=== PATIENT | female | born 1960 | race African-American/Black ===

== ENCOUNTER 2018-06-10 11:45 | Inpatient (IN) | payer MEDICAID ==
[~2018-06-10] VITALS: Ht 165.1 cm; Wt 72.6 kg
[2018-06-10 12:12] VITALS: BP 136/82
--- NOTE | 2018-06-10 12:24 | Emergency Room Report ---
History of Present Illness General Chief Complaint: General Complaint Source: Patient Present Illness HPI Patient sense with reports that she has not been able to sleep over the past 5 days Reports that she was recently checked for her glucose and was elevated however she has not had any further intervention or follow-up She also feels palpitations and heaviness in the midsternal area Denies any vomiting or diarrhea denies any headache as any focal weakness denies any new medications Allergies: Coded Allergies: No Known Allergies (Unverified , 06/10/18) Patient History Past Medical History: see triage record Pertinent Family History: none Last Menstrual Period: menopause Reviewed Nursing Documentation: PMH: Agreed; PSxH: Agreed Nursing Documentation-PMH Past Medical History: No Stated History Review of Systems All Other Systems: negative except mentioned in HPI Physical Exam Vital Signs Date Time Temp Pulse Resp B/P (MAP) Pulse Ox O2 Delivery O2 Flow Rate FiO2 06/10/18 11:54 98.1 75 18 153/101 96 Room Air Sp02 EP Interpretation: reviewed, normal General Appearance: well appearing, no apparent distress Head: normocephalic, atraumatic Eyes: bilateral eye PERRL, bilateral eye EOMI ENT: hearing grossly normal, normal pharynx, TMs + canals normal, uvula midline Neck: full range of motion, supple, no meningismus, no bony tend Respiratory: lungs clear, normal breath sounds, no rhonchi, no respiratory distress, no retraction, no accessory muscle use Cardiovascular #1: normal peripheral pulses, regular rate, rhythm, no edema, no gallop, no JVD, no murmur Gastrointestinal: normal bowel sounds, non tender, soft, no mass, no organomegaly, non-distended, no guarding, no hernia, no pulsatile mass, no rebound Genitourinary: no CVA tenderness Musculoskeletal: normal inspection Neurologic: oriented x3, responsive, 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, motor strength/ tone normal, sensory intact Psychiatric: mood/affect normal Skin: normal color, no rash, warm/dry, palpation normal Lymphatic: normal inspection, no adenopathy Medical Decision Making Diagnostic Impression: Primary Impression: Dehydration Additional Impressions: Polysubstance abuse UTI (urinary tract infection) ER Course Patient is a fairly complex patient with multiple differential to consideration including but not limited to cardiac cardiopulmonary and vascular emergencies Patient's workup reveals elevated white blood cell count Hemoglobin is high indicative of the patient's clinical dehydration Urine sample also shows positive nitrites Patient also has multi-substance positive Patient receiving further hydration And requires further inpatient care Labs Test 06/10/18 12:52 06/10/18 13:55 06/10/18 14:30 06/11/18 05:00 White Blood Count 16.4 K/UL (4.8-10.8) 14.0 K/UL (4.8-10.8) Red Blood Count 8.20 M/UL (4.20-5.40) 7.41 M/UL (4.20-5.40) Hemoglobin 20.8 G/DL (12.0-16.0) 18.7 G/DL (12.0-16.0) Hematocrit 62.4 % (37.0-47.0) 56.4 % (37.0-47.0) Mean Corpuscular Volume 77 FL (80-99) 76 FL (80-99) Mean Corpuscular Hemoglobin 25.4 PG (27.0-31.0) 25.2 PG (27.0-31.0) Mean Corpuscular Hemoglobin Concent 33.3 G/DL (32.0-36.0) 33.1 G/DL (32.0-36.0) Red Cell Distribution Width 17.9 % (11.6-14.8) 17.2 % (11.6-14.8) Platelet Count 826 K/UL (150-450) 669 K/UL (150-450) Mean Platelet Volume 6.5 FL (6.5-10.1) 5.9 FL (6.5-10.1) Neutrophils (%) (Auto) % (45.0-75.0) 69.3 % (45.0-75.0) Lymphocytes (%) (Auto) % (20.0-45.0) 21.4 % (20.0-45.0) Monocytes (%) (Auto) % (1.0-10.0) 4.7 % (1.0-10.0) Eosinophils (%) (Auto) % (0.0-3.0) 2.6 % (0.0-3.0) Basophils (%) (Auto) % (0.0-2.0) 2.0 % (0.0-2.0) Differential Total Cells Counted 100 Neutrophils % (Manual) 80 % (45-75) Lymphocytes % (Manual) 13 % (20-45) Monocytes % (Manual) 3 % (1-10) Eosinophils % (Manual) 0 % (0-3) Basophils % (Manual) 0 % (0-2) Band Neutrophils 4 % (0-8) Platelet Estimate Increased Platelet Morphology Normal Anisocytosis 1+ Sodium Level 141 MMOL/L (136-145) 143 MMOL/L (136-145) Potassium Level 4.1 MMOL/L (3.5-5.1) 3.0 MMOL/L (3.5-5.1) Chloride Level 104 MMOL/L (98-107) 105 MMOL/L (98-107) Carbon Dioxide Level 25 MMOL/L (21-32) 29 MMOL/L (21-32) Anion Gap 12 mmol/L (5-15) 9 mmol/L (5-15) Blood Urea Nitrogen 12 mg/dL (7-18) 11 mg/dL (7-18) Creatinine 0.8 MG/DL (0.55-1.30) 1.1 MG/DL (0.55-1.30) Estimat Glomerular Filtration Rate > 60 mL/min (>60) > 60 mL/min (>60) Glucose Level 97 MG/DL (74-106) 79 MG/DL (74-106) Calcium Level 9.6 MG/DL (8.5-10.1) 9.2 MG/DL (8.5-10.1) Total Bilirubin 1.1 MG/DL (0.2-1.0) 1.0 MG/DL (0.2-1.0) Direct Bilirubin 0.0 MG/DL (0.0-0.3) Aspartate Amino Transf (AST/SGOT) 17 U/L (15-37) 15 U/L (15-37) Alanine Aminotransferase (ALT/SGPT) 9 U/L (12-78) 10 U/L (12-78) Alkaline Phosphatase 96 U/L (46-116) 86 U/L (46-116) Total Creatine Kinase 65 U/L (26-308) Creatine Kinase MB < 0.5 NG/ML (0.0-3.6) Creatine Kinase MB Relative Index 0.7 Troponin I 0.035 ng/mL (0.000-0.056) Pro-B-Type Natriuretic Peptide 91 pg/mL (0-125) Total Protein 7.8 G/DL (6.4-8.2) 7.1 G/DL (6.4-8.2) Albumin 3.7 G/DL (3.4-5.0) 3.3 G/DL (3.4-5.0) Globulin 4.1 g/dL 3.8 g/dL Albumin/Globulin Ratio 0.9 (1.0-2.7) 0.9 (1.0-2.7) Lipase 55 U/L (73-393) Urine Color Yellow Urine Appearance Clear Urine pH 6 (4.5-8.0) Urine Specific [place] 1.025 (1.005-1.035) Urine Protein 2+ (NEGATIVE) Urine Glucose (UA) Negative (NEGATIVE) Urine Ketones 4+ (NEGATIVE) Urine Blood 2+ (NEGATIVE) Urine Nitrite Positive (NEGATIVE) Urine Bilirubin 2+ (NEGATIVE) Urine Ictotest Negative (NEGATIVE) Urine Urobilinogen 4 MG/DL (0.0-1.0) Urine Leukocyte Esterase 2+ (NEGATIVE) Urine RBC 5-10 /HPF (0 - 2) Urine WBC 2-4 /HPF (0 - 2) Urine Squamous Epithelial Cells Few /LPF (NONE/OCC) Urine Bacteria Few /HPF (NONE) Urine Mucus Moderate /LPF (NONE/OCC) Urine Opiates Screen Positive (NEGATIVE) Urine Barbiturates Screen Negative (NEGATIVE) Phencyclidine (PCP) Screen Negative (NEGATIVE) Urine Amphetamines Screen Negative (NEGATIVE) Urine Benzodiazepines Screen Positive (NEGATIVE) Urine Cocaine Screen Negative (NEGATIVE) Urine Marijuana (THC) Screen Positive (NEGATIVE) Test 06/12/18 07:20 Rhythm Strip Diag. Results EP Interpretation: yes Rate: 89 Rhythm: NSR, no PVC's, no ectopy Chest X-Ray Diagnostic Results Chest X-Ray Diagnostic Results : Chest X-Ray Ordered: Yes # of Views/Limited/Complete: 1 View Indication: Chest Pain EP Interpretation: Yes Interpretation: no consolidation, no effusion, no pneumothorax Impression: No acute disease Electronically Signed by: Ysabel Pompa DO Last Vital Signs Date Time Temp Pulse Resp B/P (MAP) Pulse Ox O2 Delivery O2 Flow Rate FiO2 06/10/18 12:12 75 18 Room Air 06/10/18 12:12 98.1 136/82 98 Status: improved Disposition: ADMITTED INPATIENT Condition: Serious Scripts No Active Prescriptions or Reported Meds Ysabel Pompa DO Jun 10, 2018 12:24
[2018-06-10 13:14] LABS: MEAN CORPUSCULAR VOLUME 77 FL (80-99); PLATELET COUNT 826 K/UL (150-450); RED CELL DISTRIBUTION WIDTH 17.9 % (11.6-14.8); WHITE BLOOD COUNT 16.4 K/UL (4.8-10.8)
[2018-06-10 13:32] LABS: HEMATOCRIT 62.4 % (37.0-47.0); HEMOGLOBIN 20.8 G/DL (12.0-16.0)
[2018-06-10] MEDS ORDERED: cefTRIAXone 1 GM in NS 55 ML IVPB ONE (14:00)
[2018-06-10 14:45] LABS: APPEARANCE,URINE CLEAR; BILIRUBIN, URINE 2+ (NEGATIVE); GLUCOSE, URINE (UA) NEGATIVE (NEGATIVE); KETONES,URINE 4+ (NEGATIVE); LEUKOCYTE ESTERASE ,URINE 2+ (NEGATIVE); NITRITE,URINE POSITIVE (NEGATIVE); PH,URINE 6 (4.5-8.0); PROTEIN,URINE 2+ (NEGATIVE); UROBILINOGEN,URINE 4 MG/DL (0.0-1.0)
[2018-06-10 14:46] LABS: ANION GAP 12 mmol/L (5-15); BLOOD UREA NITROGEN 12 mg/dL (7-18); CALCIUM 9.6 MG/DL (8.5-10.1); CARBON DIOXIDE 25 MMOL/L (21-32); CHLORIDE 104 MMOL/L (98-107); CREATININE 0.8 MG/DL (0.55-1.30); POTASSIUM 4.1 MMOL/L (3.5-5.1); SODIUM 141 MMOL/L (136-145)
[2018-06-10 14:54] LABS: COLOR,URINE YELLOW
[2018-06-10 15:02] LABS: ALANINE AMINOTRANSFERASE 9 U/L (12-78); ALBUMIN 3.7 G/DL (3.4-5.0); ALBUMIN/GLOBULIN RATIO 0.9 (1.0-2.7); ALKALINE PHOSPHATASE 96 U/L (46-116); ASPARTATE AMINO TRANSFERASE 17 U/L (15-37); BILIRUBIN,TOTAL 1.1 MG/DL (0.2-1.0); CKMB < 0.5 NG/ML (0.0-3.6); CREATINE KINASE 65 U/L (26-308)
[2018-06-10 15:07] VITALS: BP 138/65
[2018-06-10 16:25] VITALS: BP 142/85
--- NOTE | 2018-06-10 16:35 | Diagnostic Imaging Report ---
Indication: Chest pain Technique: One view of the chest Comparison: none Findings: Lungs and pleural spaces are clear. Heart size is normal. Metallic foreign bodies project over the right chest wall and axilla Impression: No acute process
[2018-06-10] MEDS ORDERED: Albuterol/Ipratropium 3ml neb HHN PRN (17:45)
[2018-06-10] MEDS ORDERED: Miralax 17gm pkt ORAL PRN (17:45)
[2018-06-10] MEDS ORDERED: Morphine Sulfate 2mg/ml Inj IVP PRN (17:45)
[2018-06-10] MEDS ORDERED: Nitroglycerin Subl 0.4mg tab SL PRN (17:45)
[2018-06-10 18:00] VITALS: BP 163/96
[2018-06-10 20:00] VITALS: BP 149/89
[2018-06-10] MEDS: Cefepime HCl 2 GM in D5W 110 ML IV SCH (20:05)
[2018-06-10] MEDS: Heparin 5000 units/ml inj SUBQ SCH (20:14)
[2018-06-10] MEDS ORDERED: Vancomycin 1.5 GM/D5W 250ML IVPB ONE (22:00)
--- NOTE | 2018-06-10 22:56 | History & Physical ---
History and Physical History & Physicial Last 24 Hour Vital Signs Date Time Temp Pulse Resp B/P (MAP) Pulse Ox O2 Delivery O2 Flow Rate FiO2 06/10/18 21:20 Room Air 06/10/18 20:22 73 16 Room Air 21 06/10/18 20:00 100.0 75 18 149/89 (109) 99 06/10/18 18:00 99.0 18 163/96 (118) 72 06/10/18 17:58 Room Air 06/10/18 17:08 98.0 88 15 142/85 99 Room Air 06/10/18 16:25 98.0 88 15 142/85 99 Room Air 06/10/18 15:07 98.1 86 18 138/65 100 Room Air 06/10/18 12:12 75 18 Room Air 06/10/18 12:12 98.1 74 20 136/82 98 Room Air 06/10/18 11:54 98.1 75 18 153/101 96 Room Air Blas Robledo MD Jun 10, 2018 22:56
[2018-06-11] VITALS: BP 150/99
[2018-06-11 04:00] VITALS: BP 135/94
--- NOTE | 2018-06-11 04:15 | History and Physical Report ---
DATE OF ADMISSION: 06/10/2018 CHIEF COMPLAINT: Lack of sleep, nausea, and vomiting. HISTORY OF PRESENT ILLNESS: This is a 57-year-old female with past medical history significant for psychiatric disorder nonspecified. She was used to be on Xanax, but she ran out of her medication and her primary doctor who is prescribing to her is retired. The patient presented to the emergency room complaining about lack of sleep, worsening over the past 10 days. She said that it got to the point that she was affecting her body and associated with nausea, vomiting, and chest discomfort. She had some palpitations and heaviness in the midsternum area. Denies any loss of consciousness. Shortly after initial evaluation in the emergency, the patient was admitted to the hospital with urinary tract infection as well as anxiety and panic attack. PAST MEDICAL HISTORY/PAST SURGICAL HISTORY: As above. History of specified psychiatric disorder. MEDICATION: At home, Xanax. SOCIAL HISTORY: The patient denies any substance abuse. However, she smokes marijuana. Denies any alcohol abuse. FAMILY HISTORY: Significant for hypertension. REVIEW OF SYSTEMS: Mostly as above. Denies any dysuria, frequency, or hematuria. Denies any hemoptysis or hematochezia. Denies any loss of consciousness. Denies any double vision. PHYSICAL EXAMINATION: VITAL SIGNS: On admission, temperature 98.1, pulse of 75, respiration 18, and blood pressure 153/101. GENERAL: The patient is awake, responsive, anxious. HEAD AND NECK: Pupils are reactive to light. Extraocular movements are intact. NECK: Supple. No JVD. LUNGS: Good air entry. No wheezing or rales. HEART: S1 and S2. Regular rhythm. No murmurs or gallops. ABDOMEN: Soft, nondistended, and nontender. Positive bowel sounds. EXTREMITIES: No cyanosis, clubbing, or edema. NEUROLOGIC: Cranial nerves II through XII grossly intact. Motor is 5/5 in all extremities. Gait is intact. RECTAL: Refused and deferred. GENITOURINARY: Refused and deferred. PSYCHIATRIC: Mood and affect is anxious. LABORATORY AND DIAGNOSTIC DATA: On admission from the ER. Urinalysis, +2 protein, +4 ketones, positive nitrate, +2 leukocytes, moderate mucosa, few bacteria. Urine drug screen positive for opioids, benzodiazepine, and marijuana. WBC of 16, hemoglobin of 8, hematocrit of 20, and platelet is ____. Sodium 141, potassium 4.1, chloride 104, bicarbonate 25, BUN 12, and creatinine 0.8. Total bilirubin of 1.1, troponin 0.035, albumin is 2.7. The patient's chest x-ray is unremarkable. No acute cardiopulmonary disease. Metallic foreign body was projecting over the right chest wall and axilla. ASSESSMENT: 1. Anxiety. 2. Psychiatric disorder, possible schizoaffective disorder. 3. Urinary tract infection. 4. Anemia. PLAN: Admit the patient to med/surg. We will follow up laboratory. Broad-spectrum antibiotics with cefepime. Code status is Full Code. DVT prophylaxis. Heparin subcutaneous. We will follow up with the psychiatry consultation with Dr. Daly in the morning and Pulmonary consultation with Dr. Porter. Blas Robledo M.D. DR: XAVIER JOB#: [id number] CC:
[2018-06-11 07:14] LABS: EOSINOPHILS % (AUTO) 2.6 % (0.0-3.0); HEMATOCRIT 56.4 % (37.0-47.0); LYMPHOCYTES % (AUTO) 21.4 % (20.0-45.0); MEAN CORPUSCULAR VOLUME 76 FL (80-99); MONOCYTES % (AUTO) 4.7 % (1.0-10.0); NEUTROPHILS % (AUTO) 69.3 % (45.0-75.0); PLATELET COUNT 669 K/UL (150-450); RED BLOOD COUNT 7.41 M/UL (4.20-5.40); RED CELL DISTRIBUTION WIDTH 17.2 % (11.6-14.8)
[2018-06-11 07:38] LABS: ALANINE AMINOTRANSFERASE 10 U/L (12-78); ALBUMIN 3.3 G/DL (3.4-5.0); ALBUMIN/GLOBULIN RATIO 0.9 (1.0-2.7); ALKALINE PHOSPHATASE 86 U/L (46-116); ANION GAP 9 mmol/L (5-15); ASPARTATE AMINO TRANSFERASE 15 U/L (15-37); BLOOD UREA NITROGEN 11 mg/dL (7-18); CALCIUM 9.2 MG/DL (8.5-10.1); CARBON DIOXIDE 29 MMOL/L (21-32); CHLORIDE 105 MMOL/L (98-107); CREATININE 1.1 MG/DL (0.55-1.30); SODIUM 143 MMOL/L (136-145)
[2018-06-11 07:50] LABS: HEMOGLOBIN 18.7 G/DL (12.0-16.0)
[2018-06-11 08:00] VITALS: BP 124/75
[2018-06-11] MEDS: Cefepime HCl 2 GM in D5W 110 ML IV SCH ×2 (09:26→20:05)
[2018-06-11] MEDS: Heparin 5000 units/ml inj SUBQ SCH ×2 (09:26→20:06)
[2018-06-11] MEDS ORDERED: Vancomycin 1 GM in D5W 275 ML IVPB SCH (10:00)
[2018-06-11 12:00] VITALS: BP 144/99
--- NOTE | 2018-06-11 14:17 | Consultation ---
History of Present Illness General Date patient seen: Jun 11, 2018 Chief Complaint: General Complaint Present Illness HPI 57 y/o F with hx of psychiatric disorder presents to ED on 06/10 with insomnia, palpitations, heaviness in midsternal area Denied v/d, MEZA, focal weakness Allergies: Coded Allergies: No Known Allergies (Unverified , 06/10/18) Medication History No Active Prescriptions or Reported Meds Patient History Healthcare decision maker Resuscitation status Full Code Advanced Directive on File Patient History Narrative Pmhx: as above Shx: The patient denies any substance abuse. However, she smokes marijuana. Denies any alcohol abuse. Fhx: non contributory Physical Exam Physical Exam Narrative . GENERAL: The patient is awake, responsive, anxious. HEAD AND NECK: Pupils are reactive to light. Extraocular movements are intact. NECK: Supple. No JVD. LUNGS: Good air entry. No wheezing or rales. HEART: S1 and S2. Regular rhythm. No murmurs or gallops. ABDOMEN: Soft, nondistended, and nontender. Positive bowel sounds. EXTREMITIES: No cyanosis, clubbing, or edema. NEUROLOGIC: Cranial nerves II through XII grossly intact. Motor is 5/5 in all extremities. Gait is intact. PSYCHIATRIC: Mood and affect is anxious. Last 24 Hour Vital Signs Date Time Temp Pulse Resp B/P (MAP) Pulse Ox O2 Delivery O2 Flow Rate FiO2 06/11/18 12:00 99.3 82 19 144/99 (114) 99 06/11/18 09:00 Room Air 06/11/18 08:27 88 16 Room Air 21 06/11/18 08:00 99.2 76 18 124/75 (91) 94 06/11/18 04:00 99.0 73 18 135/94 (108) 97 06/11/18 00:00 98.7 73 18 150/99 (116) 94 06/10/18 21:20 Room Air 06/10/18 20:22 73 16 Room Air 21 06/10/18 20:00 100.0 75 18 149/89 (109) 99 06/10/18 18:00 99.0 18 163/96 (118) 72 06/10/18 17:58 Room Air 06/10/18 17:08 98.0 88 15 142/85 99 Room Air 06/10/18 16:25 98.0 88 15 142/85 99 Room Air 06/10/18 15:07 98.1 86 18 138/65 100 Room Air Intake and Output 06/10/18 06/11/18 19:00 07:00 Intake Total 100 ml 360 ml Balance 100 ml 360 ml Intake Oral 100 ml IV Total 360 ml # Voids 2 Laboratory Tests Test 06/10/18 14:30 06/11/18 05:00 Urine Color Yellow Urine Appearance Clear Urine pH 6 (4.5-8.0) Urine Specific [place] 1.025 (1.005-1.035) Urine Protein 2+ (NEGATIVE) H Urine Glucose (UA) Negative (NEGATIVE) Urine Ketones 4+ (NEGATIVE) H Urine Blood 2+ (NEGATIVE) H Urine Nitrite Positive (NEGATIVE) H Urine Bilirubin 2+ (NEGATIVE) H Urine Ictotest Negative (NEGATIVE) Urine Urobilinogen 4 MG/DL (0.0-1.0) H Urine Leukocyte Esterase 2+ (NEGATIVE) H Urine RBC 5-10 /HPF (0 - 2) H Urine WBC 2-4 /HPF (0 - 2) Urine Squamous Epithelial Cells Few /LPF (NONE/OCC) Urine Bacteria Few /HPF (NONE) Urine Mucus Moderate /LPF (NONE/OCC) H Urine Opiates Screen Positive (NEGATIVE) H Urine Barbiturates Screen Negative (NEGATIVE) Phencyclidine (PCP) Screen Negative (NEGATIVE) Urine Amphetamines Screen Negative (NEGATIVE) Urine Benzodiazepines Screen Positive (NEGATIVE) H Urine Cocaine Screen Negative (NEGATIVE) Urine Marijuana (THC) Screen Positive (NEGATIVE) H White Blood Count 14.0 K/UL (4.8-10.8) H Red Blood Count 7.41 M/UL (4.20-5.40) H Hemoglobin 18.7 G/DL (12.0-16.0) *H Hematocrit 56.4 % (37.0-47.0) H Mean Corpuscular Volume 76 FL (80-99) L Mean Corpuscular Hemoglobin 25.2 PG (27.0-31.0) L Mean Corpuscular Hemoglobin Concent 33.1 G/DL (32.0-36.0) Red Cell Distribution Width 17.2 % (11.6-14.8) H Platelet Count 669 K/UL (150-450) H Mean Platelet Volume 5.9 FL (6.5-10.1) L Neutrophils (%) (Auto) 69.3 % (45.0-75.0) Lymphocytes (%) (Auto) 21.4 % (20.0-45.0) Monocytes (%) (Auto) 4.7 % (1.0-10.0) Eosinophils (%) (Auto) 2.6 % (0.0-3.0) Basophils (%) (Auto) 2.0 % (0.0-2.0) Sodium Level 143 MMOL/L (136-145) Potassium Level 3.0 MMOL/L (3.5-5.1) L Chloride Level 105 MMOL/L (98-107) Carbon Dioxide Level 29 MMOL/L (21-32) Anion Gap 9 mmol/L (5-15) Blood Urea Nitrogen 11 mg/dL (7-18) Creatinine 1.1 MG/DL (0.55-1.30) Estimat Glomerular Filtration Rate > 60 mL/min (>60) Glucose Level 79 MG/DL (74-106) Calcium Level 9.2 MG/DL (8.5-10.1) Total Bilirubin 1.0 MG/DL (0.2-1.0) Aspartate Amino Transf (AST/SGOT) 15 U/L (15-37) Alanine Aminotransferase (ALT/SGPT) 10 U/L (12-78) L Alkaline Phosphatase 86 U/L (46-116) Total Protein 7.1 G/DL (6.4-8.2) Albumin 3.3 G/DL (3.4-5.0) L Globulin 3.8 g/dL Albumin/Globulin Ratio 0.9 (1.0-2.7) L Height (Feet): 5 Height (Inches): 5.00 Weight (Pounds): 160 Medications Current Medications Medications (Trade) Dose Ordered Sig/Mahsa Route PRN Reason Start Time Stop Time Status Last Admin Dose Admin Acetaminophen (Tylenol) 650 mg Q4H PRN ORAL fever (temp>100.5 F) 06/10/18 17:45 07/10/18 17:44 Albuterol/ Ipratropium (Albuterol/ Ipratropium) 3 ml Q4H PRN HHN Shortness of Breath 06/10/18 17:45 06/15/18 17:44 Cefepime HCl 2 gm/ Dextrose 110 ml @ 220 mls/hr EVERY 12 HOURS IV 06/10/18 21:00 06/17/18 20:59 06/11/18 09:26 Dextrose (Dextrose 50%) 25 ml Q30M PRN IV Hypoglycemia 06/10/18 18:00 07/10/18 17:46 Dextrose (Dextrose 50%) 50 ml Q30M PRN IV hypoglycemia 06/10/18 18:00 07/10/18 17:59 Heparin Sodium (Porcine) (Heparin 5000 units/ml) 5,000 units EVERY 12 HOURS SUBQ 06/10/18 21:00 07/10/18 20:59 06/11/18 09:26 Morphine Sulfate (Morphine Sulfate) 2 mg Q4H PRN IVP Moderate Pain (Pain Scale 4-6) 06/10/18 17:45 06/17/18 17:44 06/11/18 07:22 Nitroglycerin (Ntg) 0.4 mg Q5M PRN SL Prn Chest Pain 06/10/18 17:45 07/10/18 17:44 Ondansetron HCl (Zofran) 4 mg Q6H PRN IVP Nausea & Vomiting 06/10/18 17:45 07/10/18 17:44 06/10/18 20:04 Polyethylene Glycol (Miralax) 17 gm DAILYPRN PRN ORAL Constipation 06/10/18 17:45 07/10/18 17:44 Temazepam (Restoril) 15 mg HSPRN PRN ORAL Insomnia 06/10/18 17:45 06/17/18 17:44 06/10/18 20:13 Assessment/Plan Assessment/Plan Abx: Ceftriaxone x1 06/10 IV Vancomycin 06/10- Cefepime 06/10- Assessment: SEpsis- ?source- r/o UTI, influenza -CXR: no acute disease -u/a wbc 2-4, nit +, leuk +3 .Low grade fever x1 Leukocytosis, improving Nausea/vomiting Insomnia Psychiatric disorder Plan: -Continue empiric Cefepime #2 pending cultures -D/c empiric IV Vancomycin -Ucx, Bcx2, influenza sc -f/u cx -Monitor CBC/CMP, temperatures -aspiration precautions Thank you for this consultation. Will continue to follow along with you. Discussed with Sylvia Snyder M.D. Jun 11, 2018 14:17
--- NOTE | 2018-06-11 14:43 | Pulmonology Progress Note ---
Assessment/Plan Problems: (1) Intractable nausea and vomiting (2) Polysubstance abuse Assessment/Plan IV fluids symptomatic treatment GI evaluation. check electrolytes f/u wbc continue abx for now ID f/u Subjective ROS Limited/Unobtainable: No Constitutional: Reports: no symptoms HEENT: Repors: no symptoms Respiratory: Reports: no symptoms Allergies: Coded Allergies: No Known Allergies (Unverified , 06/10/18) Objective Last 24 Hour Vital Signs Date Time Temp Pulse Resp B/P (MAP) Pulse Ox O2 Delivery O2 Flow Rate FiO2 06/11/18 12:00 99.3 82 19 144/99 (114) 99 06/11/18 09:00 Room Air 06/11/18 08:27 88 16 Room Air 21 06/11/18 08:00 99.2 76 18 124/75 (91) 94 06/11/18 04:00 99.0 73 18 135/94 (108) 97 06/11/18 00:00 98.7 73 18 150/99 (116) 94 06/10/18 21:20 Room Air 06/10/18 20:22 73 16 Room Air 21 06/10/18 20:00 100.0 75 18 149/89 (109) 99 06/10/18 18:00 99.0 18 163/96 (118) 72 06/10/18 17:58 Room Air 06/10/18 17:08 98.0 88 15 142/85 99 Room Air 06/10/18 16:25 98.0 88 15 142/85 99 Room Air 06/10/18 15:07 98.1 86 18 138/65 100 Room Air Intake and Output 06/10/18 06/11/18 19:00 07:00 Intake Total 100 ml 360 ml Balance 100 ml 360 ml Intake Oral 100 ml IV Total 360 ml # Voids 2 General Appearance: WD/WN HEENT: normocephalic, atraumatic Respiratory/Chest: chest wall non-tender, lungs clear Breasts: no masses Cardiovascular: normal peripheral pulses Abdomen: normal bowel sounds, soft, non tender Genitourinary: normal external genitalia Extremities: no cyanosis Neurologic/Psychiatric: larriman helper II-XII grossly normal Laboratory Tests 06/11/18 05:00: White Blood Count 14.0H, Red Blood Count 7.41H, Hemoglobin 18.7*H, Hematocrit 56.4H, Mean Corpuscular Volume 76L, Mean Corpuscular Hemoglobin 25.2L, Mean Corpuscular Hemoglobin Concent 33.1, Red Cell Distribution Width 17.2H, Platelet Count 669H, Mean Platelet Volume 5.9L, Neutrophils (%) (Auto) 69.3, Lymphocytes (%) (Auto) 21.4, Monocytes (%) (Auto) 4.7, Eosinophils (%) (Auto) 2.6, Basophils (%) (Auto) 2.0, Sodium Level 143, Potassium Level 3.0L, Chloride Level 105, Carbon Dioxide Level 29, Anion Gap 9, Blood Urea Nitrogen 11, Creatinine 1.1, Estimat Glomerular Filtration Rate > 60, Glucose Level 79, Calcium Level 9.2, Total Bilirubin 1.0, Aspartate Amino Transf (AST/SGOT) 15, Alanine Aminotransferase (ALT/SGPT) 10L, Alkaline Phosphatase 86, Total Protein 7.1, Albumin 3.3L, Globulin 3.8, Albumin/Globulin Ratio 0.9L Current Medications Medications (Trade) Dose Ordered Sig/Mahsa Route PRN Reason Start Time Stop Time Status Last Admin Dose Admin Acetaminophen (Tylenol) 650 mg Q4H PRN ORAL fever (temp>100.5 F) 06/10/18 17:45 07/10/18 17:44 Albuterol/ Ipratropium (Albuterol/ Ipratropium) 3 ml Q4H PRN HHN Shortness of Breath 06/10/18 17:45 06/15/18 17:44 Cefepime HCl 2 gm/ Dextrose 110 ml @ 220 mls/hr EVERY 12 HOURS IV 06/10/18 21:00 06/17/18 20:59 06/11/18 09:26 Dextrose (Dextrose 50%) 25 ml Q30M PRN IV Hypoglycemia 06/10/18 18:00 07/10/18 17:46 Dextrose (Dextrose 50%) 50 ml Q30M PRN IV hypoglycemia 06/10/18 18:00 07/10/18 17:59 Heparin Sodium (Porcine) (Heparin 5000 units/ml) 5,000 units EVERY 12 HOURS SUBQ 06/10/18 21:00 07/10/18 20:59 06/11/18 09:26 Morphine Sulfate (Morphine Sulfate) 2 mg Q4H PRN IVP Moderate Pain (Pain Scale 4-6) 06/10/18 17:45 06/17/18 17:44 06/11/18 07:22 Nitroglycerin (Ntg) 0.4 mg Q5M PRN SL Prn Chest Pain 06/10/18 17:45 07/10/18 17:44 Ondansetron HCl (Zofran) 4 mg Q6H PRN IVP Nausea & Vomiting 06/10/18 17:45 07/10/18 17:44 06/10/18 20:04 Polyethylene Glycol (Miralax) 17 gm DAILYPRN PRN ORAL Constipation 06/10/18 17:45 07/10/18 17:44 Temazepam (Restoril) 15 mg HSPRN PRN ORAL Insomnia 06/10/18 17:45 06/17/18 17:44 06/10/18 20:13 Marci Porter MD Jun 11, 2018 14:43
--- NOTE | 2018-06-11 15:44 | Internal Med Progress Note ---
Subjective Physician Name Blas Robledo Attending Physician Blas Robledo MD Current Medications Medications (Trade) Dose Ordered Sig/Mahsa Route PRN Reason Start Time Stop Time Status Last Admin Dose Admin Acetaminophen (Tylenol) 650 mg Q4H PRN ORAL fever (temp>100.5 F) 06/10/18 17:45 07/10/18 17:44 Albuterol/ Ipratropium (Albuterol/ Ipratropium) 3 ml Q4H PRN HHN Shortness of Breath 06/10/18 17:45 06/15/18 17:44 Cefepime HCl 2 gm/ Dextrose 110 ml @ 220 mls/hr EVERY 12 HOURS IV 06/10/18 21:00 06/17/18 20:59 06/11/18 09:26 Dextrose (Dextrose 50%) 25 ml Q30M PRN IV Hypoglycemia 06/10/18 18:00 07/10/18 17:46 Dextrose (Dextrose 50%) 50 ml Q30M PRN IV hypoglycemia 06/10/18 18:00 07/10/18 17:59 Heparin Sodium (Porcine) (Heparin 5000 units/ml) 5,000 units EVERY 12 HOURS SUBQ 06/10/18 21:00 07/10/18 20:59 06/11/18 09:26 Morphine Sulfate (Morphine Sulfate) 2 mg Q4H PRN IVP Moderate Pain (Pain Scale 4-6) 06/10/18 17:45 06/17/18 17:44 06/11/18 07:22 Nitroglycerin (Ntg) 0.4 mg Q5M PRN SL Prn Chest Pain 06/10/18 17:45 07/10/18 17:44 Ondansetron HCl (Zofran) 4 mg Q6H PRN IVP Nausea & Vomiting 06/10/18 17:45 07/10/18 17:44 06/10/18 20:04 Polyethylene Glycol (Miralax) 17 gm DAILYPRN PRN ORAL Constipation 06/10/18 17:45 07/10/18 17:44 Temazepam (Restoril) 15 mg HSPRN PRN ORAL Insomnia 06/10/18 17:45 06/17/18 17:44 06/10/18 20:13 Allergies: Coded Allergies: No Known Allergies (Unverified , 06/10/18) Subjective awake, alert, responsive, No N / V, No CP or SOB, K: 3.0 Objective Last Vital Signs Date Time Temp Pulse Resp B/P (MAP) Pulse Ox O2 Delivery O2 Flow Rate FiO2 06/11/18 12:00 99.3 82 19 144/99 (114) 99 06/11/18 09:00 Room Air 06/11/18 08:27 21 Laboratory Tests Test 06/11/18 05:00 White Blood Count 14.0 K/UL (4.8-10.8) H Red Blood Count 7.41 M/UL (4.20-5.40) H Hemoglobin 18.7 G/DL (12.0-16.0) *H Hematocrit 56.4 % (37.0-47.0) H Mean Corpuscular Volume 76 FL (80-99) L Mean Corpuscular Hemoglobin 25.2 PG (27.0-31.0) L Mean Corpuscular Hemoglobin Concent 33.1 G/DL (32.0-36.0) Red Cell Distribution Width 17.2 % (11.6-14.8) H Platelet Count 669 K/UL (150-450) H Mean Platelet Volume 5.9 FL (6.5-10.1) L Neutrophils (%) (Auto) 69.3 % (45.0-75.0) Lymphocytes (%) (Auto) 21.4 % (20.0-45.0) Monocytes (%) (Auto) 4.7 % (1.0-10.0) Eosinophils (%) (Auto) 2.6 % (0.0-3.0) Basophils (%) (Auto) 2.0 % (0.0-2.0) Sodium Level 143 MMOL/L (136-145) Potassium Level 3.0 MMOL/L (3.5-5.1) L Chloride Level 105 MMOL/L (98-107) Carbon Dioxide Level 29 MMOL/L (21-32) Anion Gap 9 mmol/L (5-15) Blood Urea Nitrogen 11 mg/dL (7-18) Creatinine 1.1 MG/DL (0.55-1.30) Estimat Glomerular Filtration Rate > 60 mL/min (>60) Glucose Level 79 MG/DL (74-106) Calcium Level 9.2 MG/DL (8.5-10.1) Total Bilirubin 1.0 MG/DL (0.2-1.0) Aspartate Amino Transf (AST/SGOT) 15 U/L (15-37) Alanine Aminotransferase (ALT/SGPT) 10 U/L (12-78) L Alkaline Phosphatase 86 U/L (46-116) Total Protein 7.1 G/DL (6.4-8.2) Albumin 3.3 G/DL (3.4-5.0) L Globulin 3.8 g/dL Albumin/Globulin Ratio 0.9 (1.0-2.7) L Intake and Output 06/10/18 06/11/18 19:00 07:00 Intake Total 100 ml 360 ml Balance 100 ml 360 ml Intake Oral 100 ml IV Total 360 ml # Voids 2 Objective General: No acute distress, awake and alert HEENT: NCAT, sclera anicteric, PERRL, EOMI. Neck: Supple, no significant jugular venous distention, Lungs: Good inspiratory effort, no Wheeze or Rales. Heart: Regular rate and rhythm, normal S1/S2, no murmurs Abdomen: soft, nontender, nondistended. Normoactive bowel sounds. / Rectal: Refused and deferred. Extremities: No Cyanosis , clubbing or edema. Neuro: A&O x 3, Able to move all extremities Skin: warm, no rashes or lesions Psych: Normal mood and affect Assessment/Plan Assessment/Plan 1. Anxiety. 2. Psychiatric disorder, possible schizoaffective disorder. 3. Urinary tract infection. 4. Anemia. PLAN: On med/surg. F/U laboratory and cultures. Broad-spectrum antibiotics with cefepime. Code status is Full Code. DVT prophylaxis: Heparin subcutaneous. Psychiatry consultation with Blas Hand MD Jun 11, 2018 15:44
[2018-06-11 16:00] VITALS: BP 109/65
--- NOTE | 2018-06-11 16:11 | Cardiology Report ---
APPROVED REPORT EKG Measurement Heart [id number] Normal sinus rhythm Possible Left atrial enlargement Nonspecific T wave abnormality Abnormal ECG
[2018-06-11 20:00] VITALS: BP 136/88
[2018-06-12] VITALS: BP 156/105
[2018-06-12] MEDS ORDERED: LORazepam 0.5mg tab ORAL PRN (01:15)
--- NOTE | 2018-06-12 01:18 | Consultation ---
History of Present Illness General Date patient seen: Jun 11, 2018 Chief Complaint: General Complaint Present Illness HPI 57-year-old female with past medical history of anxiety do and schizoaffective d/o nonspecified. She was used to be on Xanax the pt stated that she has anxiety and depression. denied si/hi Allergies: Coded Allergies: No Known Allergies (Unverified , 06/10/18) Medication History Scheduled Quetiapine Fumarate (Seroquel), 50 MG ORAL DAILY Patient History Limited by: medical condition History Provided By: Patient, Medical Record Healthcare decision maker Resuscitation status Full Code Advanced Directive on File Past Medical/Surgical History Past Medical/Surgical History: (1) Intractable nausea and vomiting (2) Dehydration (3) Polysubstance abuse Review of Systems Psychiatric: Reports: prior hx, anxiety, depressed feelings Physical Exam General Appearance: no apparent distress, alert Neurologic: oriented x 3, responsive, depressed affect Last 24 Hour Vital Signs Date Time Temp Pulse Resp B/P (MAP) Pulse Ox O2 Delivery O2 Flow Rate FiO2 06/11/18 21:00 Room Air 06/11/18 20:00 75 16 Room Air 21 06/11/18 20:00 98.9 75 18 136/88 (104) 96 06/11/18 16:00 98.1 78 20 109/65 (80) 100 06/11/18 12:00 99.3 82 19 144/99 (114) 99 06/11/18 09:00 Room Air 06/11/18 08:27 88 16 Room Air 21 06/11/18 08:00 99.2 76 18 124/75 (91) 94 06/11/18 04:00 99.0 73 18 135/94 (108) 97 Intake and Output 06/11/18 06/12/18 19:00 07:00 Intake Total 100 ml Balance 100 ml Intake Oral 100 ml # Voids 3 Laboratory Tests Test 06/11/18 05:00 White Blood Count 14.0 K/UL (4.8-10.8) H Red Blood Count 7.41 M/UL (4.20-5.40) H Hemoglobin 18.7 G/DL (12.0-16.0) *H Hematocrit 56.4 % (37.0-47.0) H Mean Corpuscular Volume 76 FL (80-99) L Mean Corpuscular Hemoglobin 25.2 PG (27.0-31.0) L Mean Corpuscular Hemoglobin Concent 33.1 G/DL (32.0-36.0) Red Cell Distribution Width 17.2 % (11.6-14.8) H Platelet Count 669 K/UL (150-450) H Mean Platelet Volume 5.9 FL (6.5-10.1) L Neutrophils (%) (Auto) 69.3 % (45.0-75.0) Lymphocytes (%) (Auto) 21.4 % (20.0-45.0) Monocytes (%) (Auto) 4.7 % (1.0-10.0) Eosinophils (%) (Auto) 2.6 % (0.0-3.0) Basophils (%) (Auto) 2.0 % (0.0-2.0) Sodium Level 143 MMOL/L (136-145) Potassium Level 3.0 MMOL/L (3.5-5.1) L Chloride Level 105 MMOL/L (98-107) Carbon Dioxide Level 29 MMOL/L (21-32) Anion Gap 9 mmol/L (5-15) Blood Urea Nitrogen 11 mg/dL (7-18) Creatinine 1.1 MG/DL (0.55-1.30) Estimat Glomerular Filtration Rate > 60 mL/min (>60) Glucose Level 79 MG/DL (74-106) Calcium Level 9.2 MG/DL (8.5-10.1) Total Bilirubin 1.0 MG/DL (0.2-1.0) Aspartate Amino Transf (AST/SGOT) 15 U/L (15-37) Alanine Aminotransferase (ALT/SGPT) 10 U/L (12-78) L Alkaline Phosphatase 86 U/L (46-116) Total Protein 7.1 G/DL (6.4-8.2) Albumin 3.3 G/DL (3.4-5.0) L Globulin 3.8 g/dL Albumin/Globulin Ratio 0.9 (1.0-2.7) L Microbiology Date/Time Source Procedure Growth Status 06/11/18 18:30 Nasopharynx Influenza Types A,B Antigen (DAVID) - Final Complete Height (Feet): 5 Height (Inches): 5.00 Weight (Pounds): 160 Medications Current Medications Medications (Trade) Dose Ordered Sig/Mahsa Route PRN Reason Start Time Stop Time Status Last Admin Dose Admin Acetaminophen (Tylenol) 650 mg Q4H PRN ORAL fever (temp>100.5 F) 06/10/18 17:45 07/10/18 17:44 Albuterol/ Ipratropium (Albuterol/ Ipratropium) 3 ml Q4H PRN HHN Shortness of Breath 06/10/18 17:45 06/15/18 17:44 Cefepime HCl 2 gm/ Dextrose 110 ml @ 220 mls/hr EVERY 12 HOURS IV 06/10/18 21:00 06/17/18 20:59 06/11/18 20:05 Dextrose (Dextrose 50%) 25 ml Q30M PRN IV Hypoglycemia 06/10/18 18:00 07/10/18 17:46 Dextrose (Dextrose 50%) 50 ml Q30M PRN IV hypoglycemia 06/10/18 18:00 07/10/18 17:59 Heparin Sodium (Porcine) (Heparin 5000 units/ml) 5,000 units EVERY 12 HOURS SUBQ 06/10/18 21:00 07/10/18 20:59 06/11/18 20:06 Lorazepam (Ativan) 2 mg Q6H PRN ORAL For Anxiety 06/12/18 01:15 06/19/18 01:14 UNV Morphine Sulfate (Morphine Sulfate) 2 mg Q4H PRN IVP Moderate Pain (Pain Scale 4-6) 06/10/18 17:45 06/17/18 17:44 06/11/18 07:22 Nitroglycerin (Ntg) 0.4 mg Q5M PRN SL Prn Chest Pain 06/10/18 17:45 07/10/18 17:44 Ondansetron HCl (Zofran) 4 mg Q6H PRN IVP Nausea & Vomiting 06/10/18 17:45 07/10/18 17:44 06/11/18 20:05 Polyethylene Glycol (Miralax) 17 gm DAILYPRN PRN ORAL Constipation 06/10/18 17:45 07/10/18 17:44 Temazepam (Restoril) 15 mg HSPRN PRN ORAL Insomnia 06/10/18 17:45 06/17/18 17:44 06/11/18 21:04 Assessment/Plan Problem List: (1) Polysubstance abuse ICD Codes: F19.10 - Other psychoactive substance abuse, uncomplicated SNOMED: 601718934 Assessment/Plan anxiety d/o schizoaffective Pamella Daly MD Jun 12, 2018 01:18
[2018-06-12] MEDS ORDERED: ALPRAZolam 0.5mg tab ORAL PRN (01:30)
[2018-06-12 04:00] VITALS: BP 148/108
--- NOTE | 2018-06-12 07:43 | Pulmonology Progress Note ---
Assessment/Plan Assessment/Plan ASSESSMENT Possible urinary tract infection schizoaffective disorder thrombocytosis hypokalemia substance-abuse PLAN OF CARE Med Surg floor s/p IVF abx, fup with cx DVT prophylaxis CXR negative Venous duplex revealed no acute DVT monitor HH with goal to keep hemoglobin above 7 monitor platelet ; elevated likely due to infectious proves (being an acute phase reactant ) infectious monitor renal parameters, electrolytes, correct lytes as needed and avoid nephrotoxic. counseled on abstinence from street drugs and on overuse of analgesic at home fup with psych recs case discussed and evaluated by supervising physician Subjective Allergies: Coded Allergies: No Known Allergies (Unverified , 06/10/18) Objective Last 24 Hour Vital Signs Date Time Temp Pulse Resp B/P (MAP) Pulse Ox O2 Delivery O2 Flow Rate FiO2 06/12/18 04:00 97.9 64 18 148/108 (121) 96 06/12/18 00:00 98.5 70 18 156/105 (122) 96 06/11/18 21:00 Room Air 06/11/18 20:00 75 16 Room Air 21 06/11/18 20:00 98.9 75 18 136/88 (104) 96 06/11/18 16:00 98.1 78 20 109/65 (80) 100 06/11/18 12:00 99.3 82 19 144/99 (114) 99 06/11/18 09:00 Room Air 06/11/18 08:27 88 16 Room Air 21 06/11/18 08:00 99.2 76 18 124/75 (91) 94 Intake and Output 06/11/18 06/12/18 19:00 07:00 Intake Total 100 ml Balance 100 ml Intake Oral 100 ml # Voids 3 2 Microbiology Date/Time Source Procedure Growth Status 06/11/18 18:30 Nasopharynx Influenza Types A,B Antigen (DAVID) - Final Complete Current Medications Medications (Trade) Dose Ordered Sig/Mahsa Route PRN Reason Start Time Stop Time Status Last Admin Dose Admin Acetaminophen (Tylenol) 650 mg Q4H PRN ORAL fever (temp>100.5 F) 06/10/18 17:45 07/10/18 17:44 Albuterol/ Ipratropium (Albuterol/ Ipratropium) 3 ml Q4H PRN HHN Shortness of Breath 06/10/18 17:45 06/15/18 17:44 Alprazolam (Xanax) 0.5 mg Q6H PRN ORAL For Anxiety 06/12/18 01:30 06/19/18 01:29 Cefepime HCl 2 gm/ Dextrose 110 ml @ 220 mls/hr EVERY 12 HOURS IV 06/10/18 21:00 06/17/18 20:59 06/11/18 20:05 Dextrose (Dextrose 50%) 25 ml Q30M PRN IV Hypoglycemia 06/10/18 18:00 07/10/18 17:46 Dextrose (Dextrose 50%) 50 ml Q30M PRN IV hypoglycemia 06/10/18 18:00 07/10/18 17:59 Heparin Sodium (Porcine) (Heparin 5000 units/ml) 5,000 units EVERY 12 HOURS SUBQ 06/10/18 21:00 07/10/18 20:59 06/11/18 20:06 Morphine Sulfate (Morphine Sulfate) 2 mg Q4H PRN IVP Moderate Pain (Pain Scale 4-6) 06/10/18 17:45 06/17/18 17:44 06/11/18 07:22 Nitroglycerin (Ntg) 0.4 mg Q5M PRN SL Prn Chest Pain 06/10/18 17:45 07/10/18 17:44 Ondansetron HCl (Zofran) 4 mg Q6H PRN IVP Nausea & Vomiting 06/10/18 17:45 07/10/18 17:44 06/11/18 20:05 Polyethylene Glycol (Miralax) 17 gm DAILYPRN PRN ORAL Constipation 06/10/18 17:45 07/10/18 17:44 Temazepam (Restoril) 15 mg HSPRN PRN ORAL Insomnia 06/10/18 17:45 06/17/18 17:44 06/11/18 21:04 Caitlin Robert NP Jun 12, 2018 07:43
[2018-06-12 08:14] LABS: ANION GAP 10 mmol/L (5-15); BLOOD UREA NITROGEN 7 mg/dL (7-18); CALCIUM 9.8 MG/DL (8.5-10.1); CARBON DIOXIDE 25 MMOL/L (21-32); CHLORIDE 106 MMOL/L (98-107); CREATININE 0.9 MG/DL (0.55-1.30); POTASSIUM 3.9 MMOL/L (3.5-5.1); SODIUM 141 MMOL/L (136-145)
--- NOTE | 2018-06-12 08:23 | Infectious Diseases Prog Note ---
Assessment/Plan Assessment/Plan Abx: Ceftriaxone x1 06/10 IV Vancomycin 06/10- Cefepime 06/10- Assessment: Sepsis- ?source- r/o UTI, influenza (-) -CXR: no acute disease -u/a wbc 2-4, nit +, leuk +3 .Low grade fever x1 Leukocytosis, improving Nausea/vomiting Insomnia Psychiatric disorder Plan: -Continue empiric Cefepime #3 pending cultures -D/c empiric IV Vancomycin -Ucx, Bcx2 -f/u cx -Monitor CBC/CMP, temperatures -aspiration precautions Thank you for this consultation. Will continue to follow along with you. Discussed with RN Subjective Allergies: Coded Allergies: No Known Allergies (Unverified , 06/10/18) Subjective Afebrile Leukocytosis improving Satting well on RA Objective Vital Signs Last 24 Hour Vital Signs Date Time Temp Pulse Resp B/P (MAP) Pulse Ox O2 Delivery O2 Flow Rate FiO2 06/12/18 04:00 97.9 64 18 148/108 (121) 96 06/12/18 00:00 98.5 70 18 156/105 (122) 96 06/11/18 21:00 Room Air 06/11/18 20:00 75 16 Room Air 21 06/11/18 20:00 98.9 75 18 136/88 (104) 96 06/11/18 16:00 98.1 78 20 109/65 (80) 100 06/11/18 12:00 99.3 82 19 144/99 (114) 99 06/11/18 09:00 Room Air 06/11/18 08:27 88 16 Room Air 21 Height (Feet): 5 Height (Inches): 5.00 Weight (Pounds): 160 Objective GENERAL: NAD. HEAD AND NECK: NCAT. MMM Extraocular movements are intact. LUNGS: Good air entry. No wheezing or rales. HEART: S1 and S2. Regular rhythm. No murmurs or gallops. ABDOMEN: Soft, nondistended, and nontender. Positive bowel sounds. Microbiology Date/Time Source Procedure Growth Status 06/11/18 18:30 Nasopharynx Influenza Types A,B Antigen (DAVID) - Final Complete 06/11/18 17:20 Urine,Clean Catch Urine Culture - Preliminary NO GROWTH Resulted Laboratory Tests Test 06/12/18 07:20 Sodium Level 141 MMOL/L (136-145) Potassium Level 3.9 MMOL/L (3.5-5.1) Chloride Level 106 MMOL/L (98-107) Carbon Dioxide Level 25 MMOL/L (21-32) Anion Gap 10 mmol/L (5-15) Blood Urea Nitrogen 7 mg/dL (7-18) Creatinine 0.9 MG/DL (0.55-1.30) Estimat Glomerular Filtration Rate > 60 mL/min (>60) Glucose Level 96 MG/DL (74-106) Calcium Level 9.8 MG/DL (8.5-10.1) Magnesium Level 1.7 MG/DL (1.8-2.4) L HIV (1&2) Antibody Rapid Pending Current Medications Medications (Trade) Dose Ordered Sig/Mahsa Route PRN Reason Start Time Stop Time Status Last Admin Dose Admin Acetaminophen (Tylenol) 650 mg Q4H PRN ORAL fever (temp>100.5 F) 06/10/18 17:45 07/10/18 17:44 Albuterol/ Ipratropium (Albuterol/ Ipratropium) 3 ml Q4H PRN HHN Shortness of Breath 06/10/18 17:45 06/15/18 17:44 Alprazolam (Xanax) 0.5 mg Q6H PRN ORAL For Anxiety 06/12/18 01:30 06/19/18 01:29 Cefepime HCl 2 gm/ Dextrose 110 ml @ 220 mls/hr EVERY 12 HOURS IV 06/10/18 21:00 06/17/18 20:59 06/11/18 20:05 Dextrose (Dextrose 50%) 25 ml Q30M PRN IV Hypoglycemia 06/10/18 18:00 07/10/18 17:46 Dextrose (Dextrose 50%) 50 ml Q30M PRN IV hypoglycemia 06/10/18 18:00 07/10/18 17:59 Heparin Sodium (Porcine) (Heparin 5000 units/ml) 5,000 units EVERY 12 HOURS SUBQ 06/10/18 21:00 07/10/18 20:59 06/11/18 20:06 Morphine Sulfate (Morphine Sulfate) 2 mg Q4H PRN IVP Moderate Pain (Pain Scale 4-6) 06/10/18 17:45 06/17/18 17:44 06/11/18 07:22 Nitroglycerin (Ntg) 0.4 mg Q5M PRN SL Prn Chest Pain 06/10/18 17:45 07/10/18 17:44 Ondansetron HCl (Zofran) 4 mg Q6H PRN IVP Nausea & Vomiting 06/10/18 17:45 07/10/18 17:44 06/11/18 20:05 Polyethylene Glycol (Miralax) 17 gm DAILYPRN PRN ORAL Constipation 06/10/18 17:45 07/10/18 17:44 Temazepam (Restoril) 15 mg HSPRN PRN ORAL Insomnia 06/10/18 17:45 06/17/18 17:44 06/11/18 21:04 Jeffery Ray MD Jun 12, 2018 08:23
[2018-06-12 08:35] VITALS: BP 151/101
[2018-06-12] MEDS: Cefepime HCl 2 GM in D5W 110 ML IV SCH (09:12)
[2018-06-12] MEDS: Heparin 5000 units/ml inj SUBQ SCH (09:13)
[2018-06-12 12:00] VITALS: BP 134/75
[2018-06-12] MEDS ORDERED: SEROQUEL50 MG ORAL (14:20)
--- NOTE | 2018-06-12 14:24 | Internal Med Progress Note ---
Subjective Physician Name Blas Robledo Attending Physician Blas Robledo MD Current Medications Medications (Trade) Dose Ordered Sig/Mahsa Route PRN Reason Start Time Stop Time Status Last Admin Dose Admin Acetaminophen (Tylenol) 650 mg Q4H PRN ORAL fever (temp>100.5 F) 06/10/18 17:45 07/10/18 17:44 Albuterol/ Ipratropium (Albuterol/ Ipratropium) 3 ml Q4H PRN HHN Shortness of Breath 06/10/18 17:45 06/15/18 17:44 Alprazolam (Xanax) 0.5 mg Q6H PRN ORAL For Anxiety 06/12/18 01:30 06/19/18 01:29 Cefepime HCl 2 gm/ Dextrose 110 ml @ 220 mls/hr EVERY 12 HOURS IV 06/10/18 21:00 06/17/18 20:59 06/12/18 09:12 Dextrose (Dextrose 50%) 25 ml Q30M PRN IV Hypoglycemia 06/10/18 18:00 07/10/18 17:46 Dextrose (Dextrose 50%) 50 ml Q30M PRN IV hypoglycemia 06/10/18 18:00 07/10/18 17:59 Heparin Sodium (Porcine) (Heparin 5000 units/ml) 5,000 units EVERY 12 HOURS SUBQ 06/10/18 21:00 07/10/18 20:59 06/12/18 09:13 Morphine Sulfate (Morphine Sulfate) 2 mg Q4H PRN IVP Moderate Pain (Pain Scale 4-6) 06/10/18 17:45 06/17/18 17:44 06/11/18 07:22 Nitroglycerin (Ntg) 0.4 mg Q5M PRN SL Prn Chest Pain 06/10/18 17:45 07/10/18 17:44 Ondansetron HCl (Zofran) 4 mg Q6H PRN IVP Nausea & Vomiting 06/10/18 17:45 07/10/18 17:44 06/12/18 09:12 Polyethylene Glycol (Miralax) 17 gm DAILYPRN PRN ORAL Constipation 06/10/18 17:45 07/10/18 17:44 Temazepam (Restoril) 15 mg HSPRN PRN ORAL Insomnia 06/10/18 17:45 06/17/18 17:44 06/11/18 21:04 Allergies: Coded Allergies: No Known Allergies (Unverified , 06/10/18) Subjective awake, alert, responsive, No N / V, No CP or SOB. Feeling good Objective Last Vital Signs Date Time Temp Pulse Resp B/P (MAP) Pulse Ox O2 Delivery O2 Flow Rate FiO2 06/12/18 09:42 77 18 Room Air 21 06/12/18 08:35 98.8 151/101 (118) 98 Laboratory Tests Test 06/12/18 07:20 Sodium Level 141 MMOL/L (136-145) Potassium Level 3.9 MMOL/L (3.5-5.1) Chloride Level 106 MMOL/L (98-107) Carbon Dioxide Level 25 MMOL/L (21-32) Anion Gap 10 mmol/L (5-15) Blood Urea Nitrogen 7 mg/dL (7-18) Creatinine 0.9 MG/DL (0.55-1.30) Estimat Glomerular Filtration Rate > 60 mL/min (>60) Glucose Level 96 MG/DL (74-106) Calcium Level 9.8 MG/DL (8.5-10.1) Magnesium Level 1.7 MG/DL (1.8-2.4) L HIV (1&2) Antibody Rapid Negative (NEGATIVE) Microbiology Date/Time Source Procedure Growth Status 06/11/18 18:30 Nasopharynx Influenza Types A,B Antigen (DAVID) - Final Complete 06/11/18 17:20 Urine,Clean Catch Urine Culture - Preliminary NO GROWTH Resulted Intake and Output 06/11/18 06/12/18 18:59 06:59 Intake Total 100 ml Balance 100 ml Intake Oral 100 ml # Voids 3 2 Objective General: No acute distress, awake and alert HEENT: NCAT, sclera anicteric, PERRL, EOMI. Neck: Supple, no significant jugular venous distention, Lungs: Good inspiratory effort, no Wheeze or Rales. Heart: Regular rate and rhythm, normal S1/S2, no murmurs Abdomen: soft, nontender, nondistended. Normoactive bowel sounds. / Rectal: Refused and deferred. Extremities: No Cyanosis , clubbing or edema. Neuro: A&O x 3, Able to move all extremities Skin: warm, no rashes or lesions Psych: Normal mood and affect Assessment/Plan Assessment/Plan 1. Anxiety. 2. Psychiatric disorder, possible schizoaffective disorder. 3. Urinary tract infection. 4. Anemia. PLAN: On med/surg. F/U laboratory and cultures. Broad-spectrum antibiotics with cefepime. Code status is Full Code. DVT prophylaxis: Heparin subcutaneous. Psychiatry consultation with Dr. Malika MCKEON Home today Blas Robledo MD Jun 12, 2018 14:24
[2018-06-12 16:00] VITALS: BP 101/64
--- NOTE | 2018-06-14 11:55 | Discharge Summary ---
Discharge Summary Discharge Summary _ DATE OF ADMISSION: 06/10/2018 DATE OF DISCHARGE: 06/12/2018 DISCHARGED BY: Dr. Robledo REASON FOR ADMISSION: 57 years old female with past medical history significant for psychiatric disorder, presented to emergency department complaining of lack of sleep , worsening over the past 10 days. Patient reported general changes including nausea ,vomiting ,chest discomfort . She also reported occasional palpitations and heaviness in the midsternal area . Laboratory workup revealed leukocytosis WBC 16.4. Platelets 826. Renal parameters and electrolytes stable. Troponin negative. Pro BNP 91. Urine toxicology screen positive for benzodiazepine and marijuana. CXR revealed no acute cardiopulmonary process. Urinalysis revealed +2 protein ,pyuria ,+2 leukocyte esterase and few bacteria. Patient admitted with diagnosis of possible UTI, polysubstance abuse, dehydration , psychiatric disorder. CONSULTANTS: pulmonary Dr. Porter ID specialist Dr. Crawley psychiatrist [facility] COURSE: Patient admitted to medical surgical floor. Patient started on empiric antibiotic and IV fluids. Renal parameters and electrolytes were closely monitored ,remained stable . Electrolytes corrected as needed. Nephrotoxins were avoided. Blood, urine culture and influenza screen test were all negative. Leucocytosis trending down. No evidence of infection. No fevers. Antibiotics stopped. Pulse oximetry was stable on room air. Patient was counseled on abstinence from street drugs. Psychiatrist closely followed . Psychiatric medication regimen optimized as per psychiatrist. Reality orientation and supportive therapy provided. Bowel regimen instituted . Supportive care provided. Antiemetic provided as needed. Diet slowly advanced. Patient was able to tolerate diet. Aspiration precaution maintained. No further nausea/vomiting episodes. DVT and GI prophylaxis provided. Platelet count closely monitored, trending down as leukocytosis trending down ( acute phase reactant) Patient clinically improved and was stable for discharge home. FINAL DIAGNOSES: Dehydration -resolved Intractable nausea and vomiting, possibly related to substance abuse -resolved Anxiety disorder Polysubstance abuse Schizoaffective disorder Thrombocytosis DISCHARGE MEDICATIONS: See Medication Reconciliation list. DISCHARGE INSTRUCTIONS: Patient was discharged home . Follow up with primary care provider in one week. I have been assigned to dictate discharge summary for this account. I was not involved in the patient's management. Caitlin Robert NP Jun 14, 2018 11:55
== END 2018-06-12 19:00 | disposition home or self-care (01) | DRG 422 ==
LOC: EMR 13:38 → OBSVTOIN 16:08 → 3E 16:08 → EDBEDREQ 16:21 → OBSVTOIN 16:52 → INTOOBSV 16:52
DX: E86.0 Dehydration (principal); F25.9 Schizoaffective disorder, unspecified; D64.9 Anemia, unspecified; F19.10 Other psychoactive substance abuse, uncomplicated; F41.9 Anxiety disorder, unspecified; R11.2 Nausea with vomiting, unspecified; G47.00 Insomnia, unspecified
CPT/HCPCS: 36415; 71045; 80048; 80053; 80307; 81003; 82248; 82550; 82553; 83690; 83735; 83880; 84484; 85007; 85025; 86703; 86710; 87040; 87086; 93005; 93970; 94664; 96361; 96365; 99285; J2405; J8499